=== PATIENT | male | born 1960 | race Native Hawaiian/Other Pacific Islander ===

== ENCOUNTER 2021-11-24 15:27 | Emergency (ER) | payer OTHER ==
[~2021-11-24] VITALS: Ht 182.9 cm; Wt 80.7 kg
[2021-11-24 15:30] VITALS: BP 159/102; TEMP 98.6
== END 2021-11-24 16:45 | disposition home or self-care (01) ==
LOC: ED 15:27
PROC: 0HQFXZZ Repair Right Hand Skin, External Approach (ICD-10-PCS; principal; 2021-11-24)
PROC: 2W3JX1Z Immobilization of Right Finger using Splint (ICD-10-PCS; 2021-11-24)
DX: S61.011A Laceration without foreign body of right thumb without damage to nail, initial encounter (principal); W26.0XXA Contact with knife, initial encounter; Y92.89 Other specified places as the place of occurrence of the external cause
CPT/HCPCS: 90471; 90715; 99284; J2001; J7040